=== PATIENT | female | born 1980 | race Caucasian/White ===

== ENCOUNTER → 2020-10-19 15:07 | Outpatient (CLI) | payer BC, SELFPAY ==
--- NOTE | ~2020-10-19 | XR_ITS ---
EXAMINATION: XR shoulder RT min 2V DATE: 10/19/2020 15:26 INDICATION: Right shoulder pain. TECHNIQUE: 4 views of right shoulder were obtained. COMPARISON: None. FINDINGS: Bone alignment is normal. No fracture. Joint spaces are well maintained. IMPRESSION: 1. Normal right shoulder. Reviewed, dictated and finalized at location A. IMPRESSION: 1. Normal right shoulder.
== END ==
PROVIDERS: PCP Family Medicine; Visit Provider Family Medicine
DX: M25.519 Pain in unspecified shoulder (principal)
CPT/HCPCS: 73030

== ENCOUNTER 2023-12-12 11:21 | Outpatient (CLI) | payer BC, SELFPAY ==
--- NOTE | ~2023-12-12 | XR_ITS ---
XR chest 2V DATE: 12/12/2023 11:40 INDICATION: Cough TECHNIQUE: 2 views COMPARISON: None FINDINGS: Normal heart size. No hilar or mediastinal enlargement. No pulmonary infiltrate or consolid ation, pleural effusion or pulmonary vascular congestion or pneumothorax is detected. Mild thoracic dextroscoliosis. IMPRESSION: No active cardiopulmonary disease Reviewed, dictated and finalized at location B.
== END 2023-12-12 11:22 ==
LOC: MICIMG 11:24
PROVIDERS: PCP Family Medicine; Visit Provider Family Medicine
DX: R05.9 Cough, unspecified (principal)
CPT/HCPCS: 71046

== ENCOUNTER 2024-05-07 12:14 | Outpatient (CLI) | payer BC, SELFPAY ==
--- NOTE | ~2024-05-07 | XR_ITS ---
Left Shoulder Technique: AP and axillary views were obtained. Clinical History: Pain Findings: No fracture or dislocation is seen. Osseous alignment is anatomic. The glenohumeral and acr omioclavicular joint spaces are preserved. Soft tissues are unremarkable. Impression: Unremarkable left shoulder radiographs. Reviewed, dictated and finalized at [facility]. Impression: Unremarkable left shoulder radiographs.
--- NOTE | ~2024-05-07 | XR_ITS ---
EXAMINATION: XR lumbar spine 2-3V DATE: 05/07/2024 12:35 INDICATION: Low back pain. TECHNIQUE: 3 views of lumbar spine were obtained. COMPARISON: None. FINDINGS: There is 16 degrees levoscoliosis of lumbar spine. There are bilateral L5 pars defects. The re is 5 mm anterolisthesis of L5 on S1. Vertebral body heights are normal. Intervertebral disc height s are normal. IMPRESSION: 1. Bilateral L5 pars defects with grade 1 anterolisthesis of L5 on S1. 2. Lumbar levoscoliosis. Reviewed, dictated and finalized at location A.
== END 2024-05-07 12:15 | disposition home or self-care (01) ==
PROVIDERS: Visit Provider Student in an Organized Health Care Education/Training Program
DX: M54.50 Low back pain, unspecified (principal); M25.512 Pain in left shoulder
CPT/HCPCS: 72100; 73030

== ENCOUNTER 2025-07-11 15:18 | Emergency (ER) | payer BC, SELFPAY ==
[2025-07-11 15:33] VITALS: BP 131/82; PULSE 83; RESP 16; TEMP 36.5; O2SAT 100
--- NOTE | 2025-07-11 16:31 | ED_ITS ---
HPI - Extremity Problem General Chief complaint: Extremity Problem,Nontraumatic Stated complaint: Multiple Complaints Time Seen by Provider: 07/11/25 16:45 Source: patient Mode of arrival: ambulatory Limitations: no limitations History of Present Illness HPI Narrative: 45 y/o female presented for multiple complaints Reporting chronic bilateral hand pain, numbness worsening the past few weeks. States she has pain when driving. Also reporting chronic bilateral shoulder pain, radiating to hands with numbness to the 3-5 digits. Pain is always worse when laying on either side. Pt reports she has had MRI, seeing pain management and physical therapy for these complaints. Has had trigger point injections to the neck. Was advised by pain management to wear wrist braces, which she is not at this time. Taking baclofen now and is scheduled with pain mgmt in 3 days. Seeing pcp Aug. Says today she contacted insurance nurse line and was advised to have evaluation within 4 hours of their call. Related Data Home Medications ?Medication ?Instructions ?Recorded ?Confirmed ?Last Taken ?Type almotriptan malate 12.5 mg tablet 12.5 mg PO ONCE 09/2205/07/24 Unknown History ubrogepant 100 mg tablet (Ubrelvy) 100 mg PO ONCE 05/2405/07/24 Unknown History mrgkmtsv-sbqutvr-wkqn-iron 18 tablet PO 10/18/2105/07 Unknown History mg-FA 400 mcg-vit K 25 mcg tablet (One-A-Day Women's Complete(with vit K)) riboflavin (vitamin B2) 400 mg 400 mg PO DAILY 2 05/07/24 Unknown History tablet Held on 09/06/23. Instructions: Patient no longer taking onabotulinumtoxinA 100 unit 5 unit IM .q12w 07/13/22 1 Unknown History solution for injection (Botox) baclofen 5 mg tablet 5 mg PO DAILY 01/09/2405/07 Unknown History oxybutynin chloride 5 mg mg PO 07/11/25 Unknown Hist ory tablet,extended release 24 hr progesterone micronized 100 mg mg 07/11/25 Unknown Hi story capsule Allergies Allergy/AdvReac Type Severity Reaction Status Date / Time latex Allergy Unknown Unknown Verified 07/11/25 15:45 [facility] AdvReac Mild Other Verified 07/11/25 15:45 Review of Systems Review of Systems: All systems reviewed & are unremarkable except as noted in HPI and below PMFSH Past Medical History Medical History Anxiety Excessive daytime sleepiness Gastroesophageal reflux disease without esophagitis History of migraine headaches Irritable bowel syndrome with diarrhea Mixed hyperlipidemia Myalgia Peripheral neuropathy, idiopathic Family History Family History Father Family history of hypercholesterolemia Mother Family history of migraine headaches Hypertension Grandparent Family history of Alzheimer's disease Other Family history of schizophrenia Social History Social History Smoking status: Never smoker Second hand tobacco smoke exposure: No Alcohol intake: never Substance use: never Substance use type: does not use Lack of Transportation: No Lack of Food: Never True Current Housing: I Have Housing Concerned About Future Housing: No Difficulty Paying Gas/Electric Bills: No Currently Unemployed: No Education: Bachelor's Degree Difficulty w/ Childcare or Family Care: No Living arrangements: with family Occupation/Education: occupation Gender identity (if verbalized by the patient): Female Spiritual care concerns: No Agree to blood products: Yes Comments At time of signature, I have reviewed and agree with nursing past medical, surgical, social and family history unless otherwise noted. Please see nursing chart for further information. There is no relevant family history pertinent to the presenting complaint Exam Narrative: GENERAL: Well-appearing, and in no acute distress. CHEST: Speaks in full sentences. No respiratory distress. HEART: Regular rate and rhythm. Normal and equal peripheral pulses. EXTREMITIES: BUEs have normal strength and sensation, normal range of motion at shoulders, elbows and wrists. No ecchymosis, No point tenderness. No open wounds, skin tenting, or obvious deformity; alignment normal, pulse palpable and equal bilaterally, skin warm, dry, pink. Capillary refill less than 3 seconds. SKIN: Warm, dry, no rash. NEURO: Alert and oriented x3. Course Course Level of Care: Express Care Visit Vital Signs Vital signs: Vital Signs Temperature 97.7 F 07/11/25 15:33 Pulse Rate 83 07/11/25 15:33 Respiratory Rate 16 07/11/25 15:33 Blood Pressure 131/82 07/11/25 15:33 Pulse Oximetry 100 07/11/25 15:33 Temperature 97.7 F 07/11/25 15:33 Pulse Rate 83 07/11/25 15:33 Respiratory Rate 16 07/11/25 15:33 Blood Pressure 131/82 07/11/25 15:33 Pulse Oximetry 100 07/11/25 15:33 MDM MDM Narrative Medical decision making narrative: Discussed physical exam findings. patient is scheduled with pain management on Monday. She is currently taking baclofen. Sent prescription for steroid, if no intervention is done with pain management she will fill the steroid. Verbalizes understanding and is agreeable to this plan. Pt has had MRI in December. Advised supportive measures and signs/symptoms to go to the ER. Pt is appropriate for outpt treatment and f/u. Differential Diagnosis Differential Diagnosis: fibromyalgia, myalgia due to medication, arthralgia, rheumatoid arthritis, osteoarthritis, cervical radiculopathy, paresthesia Discharge Plan Discharge Clinical Impression: Upper extremity pain Qualifiers: Laterality: bilateral Qualified Code(s): M79.601 - Pain in right arm Patient Disposition: Home Condition: Stable Instructions: Paresthesia (ED), Cervical Radiculopathy (ED) Additional Instructions: Rest. Avoid pushing, pulling, lifting or anything that worsens the symptoms Tylenol 1000mg every 8 hours as needed You can alternate with ibuprofen 600mg Alternate ice/heat to the sites. Recommend pain cream like icy/hot or biofreeze. wear wrist supports RX steroid is sent, recommend consulting with pain management as scheduled Monday prior to staring the steroid Follow up with your primary care provider in 1 week Go to the ER for worsening symptoms or concerns Patient Language: Malawian Prescriptions: New prednisone 20 mg tablet 20 mg PO DAILY Qty: 18 0RF Rx Instructions: take 3 tablets daily for 3 days, then 2 tablets daily for 3 days then 1 tablet daily for 3 days No Action oxybutynin chloride 5 mg tablet extended release 24hr PO progesterone micronized 100 mg capsule Ubrelvy 100 mg tablet 100 mg PO ONCE Rx Instructions: as a single dose; may repeat once in >=2 hours after first dose if needed One-A-Day Women's Complete(vK) 18 mg-400 mcg- 25 mcg tablet PO riboflavin (vitamin B2) 400 mg tablet 400 mg PO DAILY Botox 100 unit recon soln 5 unit IM .q12w Rx Instructions: as a single dose almotriptan malate 12.5 mg tablet 12.5 mg PO ONCE baclofen 5 mg tablet 5 mg PO DAILY montelukast 10 mg tablet 10 mg PO DAILY Qty: 90 3RF levocetirizine 5 mg tablet See Rx Instructions .ROUTE .COMPLEX Qty: 90 3RF Dose Instruction: Take 1 tablet by mouth once daily Rx Instructions: Take 1 tablet by mouth once daily ondansetron 4 mg tablet,disintegrating See Rx Instructions .ROUTE Q8H PRN (Reason: nausea and vomiting) Qty: 40 1RF Rx Instructions: Take 1-2 tab and dissolve under the tongue every 8 hours PRN; topiramate [Topamax] 100 mg tablet 100 mg PO BID Qty: 60 1RF omeprazole 40 mg capsule,delayed release(DR/EC) 40 mg PO DAILY Qty: 90 4RF Follow-up/Referrals: Ely Bella PA-C [Primary Care Provider, Family Practice]
== END 2025-07-11 17:03 | disposition home or self-care (01) ==
PROVIDERS: Emergency Provider Nurse Practitioner Family; PCP Student in an Organized Health Care Education/Training Program
DX: M79.602 Pain in left arm (principal); M79.601 Pain in right arm; E78.2 Mixed hyperlipidemia; G60.9 Hereditary and idiopathic neuropathy, unspecified; K21.9 Gastro-esophageal reflux disease without esophagitis
CPT/HCPCS: 99213; G0463